=== PATIENT | female | born 1935 | race Caucasian/White ===

== ENCOUNTER → 2016-06-06 | Outpatient (CLI) | payer MEDICARE, BC ==
[~2016-06-06] VITALS: Ht 160 cm; Wt 79.0 kg
[~2016-06-06] MED LIST: CARV3.12 PO; CHLORHEXIDINE GLUCONATE 2 % 1 PACK (2 CLOTHS) TOPICAL PRN; FERR325T PO; FOLI1TAB4 PO; INSULIN HUMAN REGULAR 1,000 UNITS/10 ML VIAL SQ PRN; LACTATED RINGER'S 1000 ML IV PRN; METOPROLOL TARTRATE 25 MG TAB PO PRN; MORPHINE SULFATE 4 MG/ML INJ IV ONE; ONDANSETRON HCL 4 MG/2 ML VIAL IV PUSH ONE; POVIDONE IODINE 5% (ANTISEPSIS KIT) 4 APPLICATIONS EACH NARE PRN; PROPOFOL 200 MG/20 ML AMP IV ONE; SIME80CH CHEW; SODIUM CHLORID 0.9% 500 ML IV PRN; VITA100032 PO; VITA500T4 PO
[2016-06-06 14:19] VITALS: BP 142/64; PULSE 59; RESP 16; TEMP 97.8; O2SAT 96
[2016-06-06 16:40] VITALS: BP 153/71; PULSE 57; RESP 16; TEMP 97.6; O2SAT 97
--- NOTE | 2016-06-07 09:14 | EKG ---
Date Performed: 06/06/2016 Time Performed: 14:14:01 PTAGE: 80 years EKG: SINUS BRADYCARDIA MODERATE T-WAVE ABNORMALITY, CONSIDER LATERAL ISCHEMIA ABNORMAL ECG PREVIOUS TRACING : 05/05/2015 10.20 DOCTOR: Ezequiel Humphrey Interpretating Date/Time 06/07/2016 09:11:54
== END ==
LOC: HEND 13:28
DX: I85.00 Esophageal varices without bleeding (principal); Z12.11 Encounter for screening for malignant neoplasm of colon; Z85.038 Personal history of other malignant neoplasm of large intestine; Z92.21 Personal history of antineoplastic chemotherapy; Z85.05 Personal history of malignant neoplasm of liver; Z01.810 Encounter for preprocedural cardiovascular examination
CPT/HCPCS: 43235; 93005; G0104; J2270; J2405; J7120